=== PATIENT | female | born 1990 | race Two or more races ===

== ENCOUNTER 2025-03-05 16:55 | Observation (INO) | payer SELFPAY ==
--- NOTE | 2025-03-05 17:01 | XR_ITS ---
Examination: Complete OB ultrasound greater than 14 weeks Date and time of exam: March 05, 2025, 1711 hours. Findings: Viable intrauterine single fetus with single amniotic sac presentation breech Cardiac motion 155 BPM Placenta anterior fundal grade 3. Umbilical cord insertion 3 vessel seen. spine maternal right Cervix 4.0 cm Ovaries obscured by bowel gas. Composite estimated gestational age based on BPD, head circumference, abdominal circumference, femur length is 35 weeks 5 days, estimated weight 2918 g. Survey of intracranial anatomy, spinal anatomy, abdominal anatomy, four-chamber heart performed with no abnormalities identified. Impression: Viable intrauterine gestation breech presentation.
--- NOTE | 2025-03-05 17:01 | XR_ITS ---
Examination: Biophysical profile, ultrasound Date and time of exam: March 05, 2025 1743 hours INDICATIONS: Diagnosis uncontrolled diabetes Technique: Multiple transabdominal sonographic images of the pelvis abdomen obtained. Attention is directed to the breathing movement, gross body movement, amniotic fluid volume and tone. Findings: Amniotic fluid index 13.4 cm Total biophysical profile is 8 of 8. breathing movement is 2. Gross body movement is 2. tone is 2. Qualitative amniotic fluid volume is 2 Impression: Biophysical profile is 8 of 8.
[2025-03-05 17:41] VITALS: BMI 36.6
[2025-03-05 18:05] VITALS: BP 136/87; PULSE 78; RESP 18; RESP 99; TEMP 36.8
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
[2025-03-05 20:27] VITALS: BMI 36.6
[2025-03-05] MEDS: INSULIN NPH 1 UNIT/0.01 ML (PER UNIT) 8 UNIT SC (21:29)
[2025-03-05 21:36] VITALS: BP 131/87; PULSE 99
[2025-03-05 22:36] VITALS: BP 119/79; PULSE 81
[2025-03-05 23:36] VITALS: BP 125/92; PULSE 81
[2025-03-06] VITALS (15 sets, daily range): BP systolic 108–139; BP diastolic 61–86; PULSE 70–97; RESP 16; TEMP 36.9
[2025-03-06] MEDS: ACETAMINOPHEN 325 MG TABLET 650 MG PO (07:39)
--- NOTE | 2025-03-06 11:50 | PD.LDDS ---
DS: Providers Provider Date of admission: 03/05/25 16:55 Primary care physician: Physician No Primary/Family Admitting Provider: Anais Paniagua MD Attending Provider on Admission: Anais Paniagua MD Attending Provider on DC: Anais Paniagua MD Discharging Provider: Anais Paniagua MD DS: Diagnosis Discharge Diagnosis (1) Gestational diabetes mellitus (GDM): Status: Acute (2) History of delivery, antepartum: Status: Acute (3) Obesity affecting in third trimester: Status: Acute (4) Elderly multigravida in third trimester: Status: Acute (5) History of premature rupture of membranes (PPROM): Status: Acute Problem List Completed Was Problem List Reviewed/Reconciled?: Yes Summary/Hosp Course Brief History: Patient presents by instruction from Dr. Renee at [facility] 08/05 elevated blood sugars on log. By his report to me over the phone, patient's GDM is very uncontrolled with postprandial sugars in the 240's. Patient's glucose log shows: 02/26: 71/146/119/245 02/27: 72/245/148/151 02/28: 92/118/265/134 03/01: 69/191/138/169 03/04: 71/167/119/101 03/05/25: 67/203 Patient notes on several occasions having juice when the sugars were 200's. Doesn't have much knowledge regarding diabetic diet and how she should be eating She notes only starting her glucose log 1 week ago. She was seen by a clinic in [place] and then transferred care to Dr. Renee 1 week ago. On admission blood glucose is 88 (hasn't eaten since the morning, so essentially a fasting value). -- After initiating carb consistent diet, Kaur had normal postprandial glucose values. Given that she hadn't even adjusted her diet yet to GDM diet and had elevated values, this does not represent lack of glucose control but rather lack of patient education. I spent an extensive amount of time with her (Rachelle as small arms artillery repairer) discussing dietary changes that are needed to keep her baby safe. We discussed risks of uncontrolled glucose management to include NICU stay for O2 and IV glucose, stillbirth, etc. She was very understanding and voiced a desire to have good glucose control. We discussed focusing diet on protein, fiber and healthy fats. Discussed to eat meats, eggs, beans, veggies, some dairy. She was drinking jagjit juice and eating a lot of corn tortillas. We discussed near elimination of corn, flour, sweets and juice. Also encouraged her to take a walk after meals, but especially dinner if it is her biggest meal. She knew exactly what she ate that was elevating her sugars on her log and will work to gain better glucose control. Discussed goal fasting <95 and goal 1hr PP <140. The other issue at hand is dating and delivery timing. I reviewed all available records from [facility] and Dr. Renee and she has VERY good dating with a 7 week ultrasound that makes her 37w4d today. Growth scan done on admission showed 35w5d. She does not have macrosomia. We will schedule her for RLTCS on 03/19 (tried for 03/18 but there are already 2 scheduled cesareans that day), she will be 39w3d at that time. She is to be NPO and arrive on the unit at 0530 on the . She will continue to see Dr. Renee as scheduled in the office. I instructed her to continue qid fingersticks and to bring her log to her visits. Status at Discharge Functional status at discharge: independent ambulation Overall status at discharge: patient is back to baseline Time Spent with Patient Time attestation: Total time spent providing and/or coordinating discharge services: Time spent: Greater than 30 minutes Exam Vital Signs Temp Pulse Resp BP 98.5 F 81 16 115/79 03/06/25 07:10 03/06/25 10:13 03/06/25 07:10 03/06/25 10:13 Narrative Exam General: well developed, well nourished, no acute distress, conversant Cardiac: normal heart rate Lungs: breathing without distress Abdomen: soft, gravid, non-tender, no rebound or guarding Extremities: no edema of BLE Discharge Plan Plan Patient Disposition: HOME (Self Care) Patient condition on transfer: Stable Prescriptions/Referrals Referrals: No Primary/Family,Physician [Primary Care Provider] - Patient/Caregiver Discharge Instructions Discharge Activity: activity as tolerated Other Discharge Diet Instructions: diabetic diet Education Materials: Kick Counts, Antepartum Discharge Print Language: Icelandic Activity Restrictions/Additional Instructions: RETURN BACK TO TRIAGE WITH SIGNS OF LEAKING, VAGINAL BLEEDING, CONTRACTIONS AND OR DECREASED MOVEMENT. KEEP ALL APPOINTMENTS WITH PROVIDER. Stand Alone Forms: Jennifer Award Info., Patient Portal Info Letter, Work/Release Restrictions Discharge Order Discharge Orders: Discharge (Routine); Ordered 03/06/25 Ordered By: Anais Paniagua Planned Discharge Date 03/06/25 (1) Gestational diabetes mellitus (GDM) Qualifiers: Gestational diabetes mellitus control: unspecified Trimester: third trimester Qualified Code(s): O24.419 - Gestational diabetes mellitus in , unspecified control (3) Obesity affecting in third trimester Qualifiers: Obesity type affecting : unspecified obesity Qualified Code(s): O99.213 - Obesity complicating , third trimester
== END 2025-03-06 11:02 | disposition home or self-care (01) ==
PROVIDERS: Admitting Provider Obstetrics & Gynecology; Visit Provider Obstetrics & Gynecology
DX: O24.419 Gestational diabetes mellitus in pregnancy, unspecified control (principal); Z3A.35 35 weeks gestation of pregnancy; O32.1XX0 Maternal care for breech presentation, not applicable or unspecified; O35.8XX0 Maternal care for other (suspected) fetal abnormality and damage, not applicable or unspecified; O99.891 Other specified diseases and conditions complicating pregnancy; N13.30 Unspecified hydronephrosis; O09.523 Supervision of elderly multigravida, third trimester; O99.213 Obesity complicating pregnancy, third trimester; E66.9 Obesity, unspecified; O34.211 Maternal care for low transverse scar from previous cesarean delivery; O09.293 Supervision of pregnancy with other poor reproductive or obstetric history, third trimester
CPT/HCPCS: 59025; 59899; 76805; 76819; J1815; A9270

== ENCOUNTER 2025-03-16 03:50 | Inpatient (IN) | payer MEDICAID, SELFPAY ==
[2025-03-16] VITALS (36 sets, daily range): BP systolic 113–158; BP diastolic 72–100; PULSE 65–86; RESP 16–100; TEMP 36.7–37.1; O2SAT 79–100; BMI 36.5
[2025-03-16] MEDS: RINGERS LACTATED 1000 ML 1,000 ML 999 ML IV ×2 (04:35→16:35)
[2025-03-16 04:59] LABS: Collection Type, Urine Clean Catch
[2025-03-16 05:03] LABS: Basophils # (Auto) 0.0 Thou/mm3 (0.0-0.2); Basophils % (Auto) 0 % (0-2.5); Eosinophils # (Auto) 0.0 Thou/mm3 (0.0-0.5); Eosinophils % (Auto) 0 % (0-10); Hematocrit 41.5 % (36.0-46.0); Hemoglobin 14.0 g/dL (12.0-16.0); Immature Granulocytes Auto 0.04 Thou/mm3 (0.00-0.00); Lymphocytes # (Auto) 2.0 Thou/mm3 (1.0-4.8); Lymphocytes % (Auto) 20 % (10-50); Mean Corpuscular HGB Conc 33.7 g/dl (31.0-37.0); Mean Corpuscular Hemoglobin 29.1 pg (25.0-35.0); Mean Corpuscular Volume 86 fL (80-100); Monocytes # (Auto) 0.6 Thou/mm3 (0.0-0.8); Monocytes % (Auto) 6 % (0-12); Neutrophils # (Auto) 7.3 Thou/mm3 (1.8-7.7); Neutrophils % (Auto) 73 % (37-80); Nucleated Red Blood Cell # 0.00 Thou/mm3 (0.00-0.00); Nucleated Red Blood Cell % 0 /100 WBC (0); Platelet Count 182 Thou/mm3 (140-440); RDW Standard Deviation 44.0 fL (36.4-46.3); Red Blood Count 4.81 Miln/mm3 (4.00-5.20); White Blood Count 10.0 Thou/mm3 (3.6-11.0)
[2025-03-16 05:09] LABS: Bacteria,Urine Rare; Bilirubin,Urine Negative (Negative); Blood,Urine 1+ (Negative); Clarity,Urine Clear (Clear/Hazy); Color,Urine Lt-Yellow (Lt Yel-Yel); Glucose, Urine Negative (Negative); Ketones,Urine 1+ (Negative); Leukocyte Esterase,Urine Positive (Negative); Nitrite,Urine Negative (Negative); PH,Urine 7.0 (5.0-7.0); Protein,Urine 1+ (Neg - Trace); RBC,Urine 4 /hpf (0-3); Specific Gravity,Urine 1.012 (1.001-1.035); Squamous Epithelial Cell,Urine 6 /hpf (0-5); Urobilinogen,Urine Negative mg/dL (0.0-1.0); WBC,Urine 7 /hpf (0-5)
[2025-03-16 05:16] LABS: Creatinine,Random Urine 47 mg/dL (30-125); Protein Total, Random Urine 61 mg/dL (1-14)
[2025-03-16] MEDS: FAMOTIDINE INJ 10 MG/ML VIAL 2 ML 20 MG IV (05:24)
[2025-03-16] MEDS: ONDANSETRON INJ 2 MG/ML INJ 2 ML 4 MG IVP (05:24)
[2025-03-16] MEDS: ceFAZolin/D5W 2 GM IV 2 GM/100 ML BAG IV (05:24)
[2025-03-16 05:26] LABS: Fibrinogen 726 mg/dL (175-375); INR 1.0 (0.9-1.3); Partial Thromboplastin Time 29.2 Seconds (22.0-36.0); Prothrombin Time 10.5 Seconds (9.0-12.2)
[2025-03-16 05:39] LABS: Anion Gap 13 (7-16); Blood Urea Nitrogen 8 mg/dL (9-23); Carbon Dioxide 19.1 mMol/L (20.0-31.0); Chloride 106 mMol/L (98-107); Potassium 3.9 mMol/L (3.4-5.1); Sodium 138 mMol/L (136-145)
[2025-03-16 05:40] LABS: Alanine Aminotransferase 9 U/L (10-49); Albumin, Serum 3.6 gm/dL (3.5-5.0); Albumin/Globulin Ratio 1.2 (1.2-2.2); Alkaline Phosphatase 224 U/L (46-116); Aspartate Amino Transferase 17 U/L (0-34); BUN/Creatinine Ratio 16 Ratio (12-20); Bilirubin,Total 0.4 mg/dL (0.3-1.2); Calcium 9.1 mg/dL (8.3-10.6); Calcium (Corrected) 9.4 mg/dL (8.5-10.1); Creatinine (Component) 0.5 mg/dL (0.6-1.3); Globulin 3.0 gm/dL (2.3-3.5); Glucose 90 mg/dL (74-106); Osmolality,Calculated 273 (275-295); Total Protein 6.6 gm/dL (5.7-8.2); Uric Acid 4.7 mg/dL (3.1-7.8); eGFR > 60 See Note
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
[2025-03-16 05:43] LABS: Syphilis Nonreactive (Nonreactive)
--- NOTE | 2025-03-16 07:09 | PD.LDDELS ---
Data (Rma) Data Hx Section: Yes : 3 Term: 1 : 0 Livin Abortions: Spontaneous & Theraputic: 1 Delivery Data (Ram) Labor Data Induction/Augmentation Agent: None ROM date: 03/16/25 ROM time: Amniotic membrane rupture type: Artificial Amniotic fluid description: Clear Delivery Data Onset of labor date: 03/16/25 Onset of labor time: 01:00 delivery date: 03/16/25 delivery time: Placenta delivery date: 03/16/25 Placenta delivery time: Delivered by: Anais Paniagua Delivery nurse: BOOM GODINEZ RN [place] nurse: SHANNON COCHRAN RN Crop Or Grain Farmer at delivery: No Support person(s) at delivery: FRIEND Other staff at delivery: SEE ORM NOTES Delivery Method Delivery method: Low Transverse Presentation: Vertex Anesthesia Type Anesthesia Type: Spinal Placenta Placenta delivery description: Manual Removal Cord blood sent to lab: Yes cord blood collection: Cord Blood Type Episiotomy Episiotomy description: None EBL Estimated blood loss (ml): 1,000 Umbilical Cord cord description: 3 Vessels Additional Procedures see operative note Complications Complications: none [place] Data (Ram) [place] Data order: 1 [place]'s gender: Male Identification band number: [id number] weight (gms): 3400 g Weight (pounds): 7 lbs and 7.9 ozs [place] length: 52 cm 1 minute: 8 5 minutes: 9
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
[2025-03-16] MEDS: OXYTOCIN in NS 20 units 20 UNIT/1,000 ML BAG 125 UNIT IV ×2 (09:21→18:28)
[2025-03-16] MEDS: HYDROcodone/APAP 5/325 TABLET 2 TAB PO (09:29)
[2025-03-16] MEDS: DOCUSATE SOD 100 MG CAPSULE PO ×2 (09:30→20:20)
[2025-03-16] MEDS: KETOROLAC INJ 30 MG/ML VIAL IVP ×2 (12:59→18:29)
[2025-03-16 18:29] LABS: Basophils # (Auto) 0.0 Thou/mm3 (0.0-0.2); Basophils % (Auto) 0 % (0-2.5); Eosinophils # (Auto) 0.0 Thou/mm3 (0.0-0.5); Eosinophils % (Auto) 0 % (0-10); Hematocrit 31.2 % (36.0-46.0); Hemoglobin 10.7 g/dL (12.0-16.0); Immature Granulocytes Auto 0.04 Thou/mm3 (0.00-0.00); Lymphocytes # (Auto) 2.0 Thou/mm3 (1.0-4.8); Lymphocytes % (Auto) 18 % (10-50); Mean Corpuscular HGB Conc 34.3 g/dl (31.0-37.0); Mean Corpuscular Hemoglobin 29.5 pg (25.0-35.0); Mean Corpuscular Volume 86 fL (80-100); Monocytes # (Auto) 0.7 Thou/mm3 (0.0-0.8); Monocytes % (Auto) 6 % (0-12); Neutrophils # (Auto) 8.6 Thou/mm3 (1.8-7.7); Neutrophils % (Auto) 76 % (37-80); Nucleated Red Blood Cell # 0.00 Thou/mm3 (0.00-0.00); Nucleated Red Blood Cell % 0 /100 WBC (0); Platelet Count 138 Thou/mm3 (140-440); RDW Standard Deviation 43.4 fL (36.4-46.3); Red Blood Count 3.63 Miln/mm3 (4.00-5.20); White Blood Count 11.4 Thou/mm3 (3.6-11.0)
[2025-03-16] MEDS: SIMETHICONE 80 MG CHEW PO (20:20)
[2025-03-17] MEDS: KETOROLAC INJ 30 MG/ML VIAL IVP ×2 (00:20→06:41)
[2025-03-17 00:27] VITALS: BP 127/80; PULSE 74; RESP 18; TEMP 36.6; O2SAT 96
[2025-03-17 04:05] VITALS: BP 110/74; PULSE 70; RESP 15; TEMP 36.8; O2SAT 96
[2025-03-17 07:30] VITALS: BP 127/83; PULSE 72; RESP 20; TEMP 36.8; O2SAT 98
[2025-03-17] MEDS: DOCUSATE SOD 100 MG CAPSULE PO (08:27)
--- NOTE | 2025-03-17 10:38 | ESDS_ITS ---
DS: Providers Provider Date of admission: 03/16/25 04:33 Primary care physician: Physician No Primary/Family Admitting Provider: Anais Paniagua MD Attending Provider on Admission: Anais Paniagua MD Consults: 03/16/25 07:06 Referral Routine Comment: Attending Provider on DC: Anais Paniagua MD Discharging Provider: Anais Paniagua MD DS: Diagnosis Discharge Diagnosis (1) delivery delivered: Status: Acute (2) Active labor at term: Status: Acute (3) History of delivery, antepartum: Status: Acute (4) Gestational diabetes mellitus (GDM): Status: Acute (5) Obesity affecting in third trimester: Status: Acute (6) Elderly multigravida in third trimester: Status: Acute Problem List Completed Was Problem List Reviewed/Reconciled?: Yes Summary/Hosp Course Brief History: Kaur is a 34yo [id number] s/p uncomplicated section at 39wk after presenting in active labor, delivering at 0628 on 03/16/25. She has had an uncomplicated post-operative course, meeting all milestones and feels ready for discharge home. She is ambulating without lightheadedness, tolerating regular diet no n/v, spontaneously voiding without issue. She has no chest pain or shortness of breath. No fevers or chills. Pain well controlled. Vitals normal, benign exam. Hemodynamically stable with no evidence of infection. Post-op Hgb 10.7. Peripartum Data Delivery Method: Low Transverse Episiotomy Description: None Procedures: Procedures Operation Date: 03/16/25 06:45 Actual Procedure Side Surgeon p in OB Anais Paniagua MD Status at Discharge Functional status at discharge: independent ambulation Overall status at discharge: patient is back to baseline Time Spent with Patient Time attestation: Total time spent providing and/or coordinating discharge services: Exam Vital Signs Temp Pulse Resp BP Pulse Ox O2 Del Method 98.3 F 72 20 127/83 98 Room Air 03/17/25 07:30 03/17/25 07:30 03/17/25 07:30 03/17/25 07:30 03/17/25 07:30 03/17/25 07:30 Narrative Exam General: well developed, well nourished, no acute distress, conversant Cardiac: normal heart rate Lungs: breathing without distress Abdomen: soft, post-gravid, non-tender, no rebound or guarding, pfannenstiel incision covered by dry/clean/intact prineo bandage. Incision well reapproximated. No erythema, drainage or induration. Fundus firm at u-2cm. Extremities: no pain with palpation of calves, trace edema of BLE Discharge Plan Plan Patient Disposition: HOME (Self Care) Patient condition on transfer: Stable Prescriptions/Referrals Prescriptions/Med Rec: New docusate sodium [Colace] 100 mg capsule 100 mg PO BID Qty: 20 0RF ibuprofen 800 mg tablet 800 mg PO Q8H PRN (Reason: pain) Qty: 30 0RF hydrocodone-acetaminophen 5-325 mg tablet 1 tab PO Q6H MDD 4 tablets PRN (Reason: pain) Qty: 10 0RF Discontinued aspirin 81 mg capsule 81 mg PO QDAY No Action vit-iron fum-folic ac [ Vitamin with Minerals] 28 mg iron- 800 mcg tablet 1 tab PO QDAY Referrals: No Primary/Family,Physician [Primary Care Provider] Patient/Caregiver Discharge Instructions Discharge Activity: activity as tolerated and other Other Discharge Activity Instructions:: vaginal rest and no heavy lifting more than 10 pounds for 6 weeks. keep incision clean and dry, do not submerge. no driving while taking narcotic Other Discharge Diet Instructions: regular diet Education Materials: After a Print Language: Luxembourgish Activity Restrictions/Additional Instructions: follow up with Dr. Renee in 1 to 2 weeks for incision check, call clinic for appointment Stand Alone Forms: Jennifer Award Info., Patient Portal Info Letter Discharge Order Discharge Orders: Discharge (Routine); Ordered 03/17/25 Ordered By: Anais Paniagua Planned Discharge Date 03/17/25 (4) Gestational diabetes mellitus (GDM) Qualifiers: Gestational diabetes mellitus control: unspecified Trimester: third trimester Qualified Code(s): O24.419 - Gestational diabetes mellitus in , unspecified control (5) Obesity affecting in third trimester Qualifiers: Obesity type affecting : unspecified obesity Qualified Code(s): O99.213 - Obesity complicating , third trimester
[2025-03-17] MEDS: IBUPROFEN TAB 400 MG TABLET 800 MG PO (12:55)
[2025-03-17] MEDS: SIMETHICONE 80 MG CHEW PO (12:55)
== END 2025-03-17 13:55 | disposition home or self-care (01) | DRG 540 ==
LOC: S4SX 05:55 → S4NX 05:57
PROVIDERS: Admitting Provider Obstetrics & Gynecology; Visit Provider Obstetrics & Gynecology
PROC: 10D00Z1 Extraction of Products of Conception, Low, Open Approach (ICD-10-PCS; CPT 59514; principal; 2025-03-16 06:30)
DX: O34.211 Maternal care for low transverse scar from previous cesarean delivery (principal); O24.429 Gestational diabetes mellitus in childbirth, unspecified control; O99.214 Obesity complicating childbirth; L91.0 Hypertrophic scar; O99.72 Diseases of the skin and subcutaneous tissue complicating childbirth; O35.EXX0 Maternal care for other (suspected) fetal abnormality and damage, fetal genitourinary anomalies, not applicable or unspecified; Z3A.39 39 weeks gestation of pregnancy; Z37.0 Single live birth; Z87.59 Personal history of other complications of pregnancy, childbirth and the puerperium
CPT/HCPCS: 36415; 59409; 80053; 81001; 82570; 84156; 84550; 85025; 85384; 85610; 85730; 86780; 86850; 86900; 86901; 94762; J0689; J1885; J2210; J2274; J2371; J2405; J2590; J3010; J3490; J7120; A9270; J2270

== ENCOUNTER 2025-04-12 16:20 | Emergency (ER) | payer MEDICAID, SELFPAY ==
[2025-04-12 16:42] VITALS: BP 130/90; PULSE 67; RESP 16; TEMP 36.8; O2SAT 99; BMI 30.7
--- NOTE | 2025-04-12 16:50 | PD.EDADULT ---
ED General RME/HPI General Chief complaint: General Adult/Misc Complain Stated complaint: C.SECTION INCISION OPENED Time Seen by Provider: 04/12/25 16:42 Source: patient Arrival date/time: 04/12/25 16:20 34-year-old female with no known medical history presents to the emergency room with a chief complaint of her incision bleeding. Patient recently had a on 03/16/2025 Mode of arrival: ambulatory Limitations: no limitations Related Data Home Medications ?Medication ?Instructions ?Recorded ?Confirmed vitamin-ferrous fumarate 1 tab PO QDAY 03/16/25 03/16/25 28 mg iron-folic acid 800 mcg tablet ( Vitamins with Minerals) Previous Rx's ?Medication ?Instructions ?Recorded docusate sodium 100 mg capsule 100 mg PO BID #20 caps 03/17/25 (Colace) hydrocodone 5 mg-acetaminophen 325 1 tab PO Q6H PRN pain #10 tabs 03/17/25 mg tablet ibuprofen 800 mg tablet 800 mg PO Q8H PRN pain #30 tabs 03/17/25 Allergies Allergy/AdvReac Type Severity Reaction Status Date / Time No Known Allergies Allergy Verified 04/12/25 16:25 Review of Systems Review of Systems Systems Reviewed: All systems reviewed, normal except as documented Constitutional Constitutional: Reports system reviewed and no additional complaints, except as documented, Denies fatigue, Denies fever(s), Denies headache(s) and Denies weakness Eyes Eyes: Reports system reviewed and no additional complaints, except as documented, Denies blurry vision and Denies change in vision ENT Ears, Nose, Mouth, and Throat: Reports system reviewed and no additional complaints, except as documented, Denies otalgia, Denies headache(s), Denies nasal congestion, Denies throat swelling and Denies vertigo Cardiovascular Cardiovascular: Reports system reviewed and no additional complaints, except as documented, Denies chest pain, Denies dyspnea and Denies dyspnea on exertion Respiratory Respiratory: Reports system reviewed and no additional complaints, except as documented, Denies chest congestion, Denies cough, Denies dyspnea, Denies dyspnea on exertion and Denies wheezing Gastrointestinal Gastrointestinal: Reports system reviewed and no additional complaints, except as documented, Denies abdominal pain, Denies cramping, Denies nausea and Denies vomiting Genitourinary Genitourinary: Reports system reviewed and no additional complaints, except as documented Musculoskeletal Musculoskeletal: Reports system reviewed and no additional complaints, except as documented and Denies back pain Integumentary/Breasts Skin/Breast: Reports system reviewed and no additional complaints, except as documented and Reports wounds Neurologic Neurologic: Reports system reviewed and no additional complaints, except as documented, Denies confusion, Denies headache(s), Denies lack of coordination, Denies vertigo and Denies weakness Psychiatric Psychiatric: Reports system reviewed and no additional complaints, except as documented, Denies anxiety, Denies confusion, Denies depression, Denies paranoia, Denies suicidal ideation and Denies tactile hallucinations Endocrine Endocrine: Reports system reviewed and no additional complaints, except as documented and Denies fatigue Hematologic/Lymphatic Hematologic/Lymphatic: Reports system reviewed and no additional complaints, except as documented and Denies lymphadenopathy Allergic/Immunologic Allergic/Immunologic: Reports system reviewed and no additional complaints, except as documented, Denies throat swelling, Denies urticaria and Denies wheezing Past Medical History Past Medical History NEUROLOGIC: Negative Neurological Disorders or Seizures CARDIAC: Negative Cardiac Disorders or Congestive Heart Failure RESPIRATORY: Negative Chronic Obstructive Pulmonary Disease (COPD) GASTROINTESTINAL: Negative Gastrointestinal Disorders or Hepatitis GENITOURINARY: Negative Genitourinary Disorders or Renal Disease REPRODUCTIVE: Negative Endometriosis, Genital Herpes, Gonorrhea, Pelvic Inflammatory Disease, Previous Pregnancies, Syphilis or Uterine Prolapse MUSCULOSKELETAL: Negative Musculoskeletal Disorders or Carpal Tunnel Syndrome ENDOCRINE: Positive Endocrine Disorders; Negative Diabetes Mellitus Type 1, Diabetes Mellitus Type 2, Hypoglycemia, Hyperthyroidism, Hypothyroidism, Parathyroid Disease, Pituitary Disease, Systemic Lupus Erythematosus, Syndrome of Inappropriate Antidiuretic Hormone (SIADH) or Graves' Disease HEMATOLOGIC: Negative Blood Disorders OTHER HISTORY: Negative Hospitalization, Autoimmune Disease, Down Syndrome, Developmental Delay, Shingles, Falls, Blood Transfusions, Blood Transfusion Reaction, Anesthesia Reactions, Organ Transplant, Chemotherapy, Radiation Therapy, Hyperbaric Therapy, MRSA, VRSA, Vancomycin-Resistant Enterococci, Human Immunodeficiency Virus (HIV), Chicken Pox, Measles, Mumps, Rubella (Persian Measles), Pertussis, Clostridium Difficile or Cancer Family History FAMILY HISTORY: Negative Family Psychiatric Problems, Family Respiratory Disorders, Family Cardiac Disorders, Family Gastrointestinal Problems, Family Cancer, Family Surgery or Family Anesthesia Reaction Surgical History SURGICAL: Positive Abdominal Surgery and Section; Negative Cardiac Surgery, Endocrine Surgery, Thyroidectomy, Ear Surgery, Gastric Bypass Surgery, Gastrostomy, Bowel Surgery, Nephrectomy, Joint Replacement, Amputation, Open Reduction Internal Fixation, Arthroscopy, Neurologic Surgery, Brain Shunt, Lumpectomy, Hysterectomy, Tubal Ligation or Organ Transplant Social History SMOKING STATUS: Never smoker SECOND HAND EXPOSURE: No ED Exam General Limitations: Present no limitations General appearance: Present alert and in no apparent distress Head Head exam: Present atraumatic Eye Eye exam: Present normal appearance, PERRL and EOMI ENT ENT exam: Present normal exam, normal oropharynx and mucous membranes moist Neck Neck exam: Present normal inspection, full ROM and trachea midline Chest Chest inspection: Present normal inspection and symmetric chest wall rise Respiratory Respiratory exam: Present normal lung sounds bilaterally Cardiovascular Cardiovascular exam: Present regular rate, normal rhythm and normal heart sounds Abdominal Exam Abdominal exam: Present soft and normal bowel sounds Extremities Exam Extremities exam: Present normal inspection and full ROM Back Exam Back exam: Present normal inspection and full ROM Neurological Exam Neurological exam: Present alert, oriented X3 and CN II-XII intact Psychiatric Psychiatric exam: Present normal affect and normal mood Skin Skin exam: Present warm, dry, intact and normal color Course Quality Measures none Vital Signs Vital signs: Vital Signs Temperature 98.2 F 04/12/25 16:42 Pulse Rate 67 04/12/25 16:42 Respiratory Rate 16 04/12/25 16:42 Blood Pressure 130/90 H 04/12/25 16:42 Pulse Oximetry (%) 99 04/12/25 16:42 Oxygen Delivery Method Room Air 04/12/25 16:42 Discharge Plan Plan Patient Disposition: HOME (Self Care) Discharge Disposition comment: Stable Prescriptions/Referrals Prescriptions/Med Rec: No Action vit-iron fum-folic ac [ Vitamin with Minerals] 28 mg iron- 800 mcg tablet 1 tab PO QDAY docusate sodium [Colace] 100 mg capsule 100 mg PO BID Qty: 20 0RF ibuprofen 800 mg tablet 800 mg PO Q8H PRN (Reason: pain) Qty: 30 0RF hydrocodone-acetaminophen 5-325 mg tablet 1 tab PO Q6H MDD 4 tablets PRN (Reason: pain) Qty: 10 0RF Problem List Clinical Impression: Complication of section wound Patient/Caregiver Discharge Instructions Additional Instructions: Por favor, consulte con welch ginec?logo/obstetra en las pr?ximas 24 a 48 horas. He evaluado welch herida y hay olivia ann?a scooter que sangra. No hay dehiscencia de la herida. Si observa cualquier signo de empeoramiento de los signos o s?ntomas, acuda a urgencias de inmediato. Print Language: Tuvaluan Stand Alone Forms: Jennifer Award Info., Work/School Release, Patient Portal Info Letter MDM Narrative MDM hospital course (for use when minimal MDM required): 34-year-old female with no known medical history presents to the emergency room with a chief complaint of her incision bleeding. Patient recently had a on 03/16/2025 Patient is hemodynamically stable and in no apparent distress Physical examination shows a very small area near the right side of the incision that is bleeding. There is no surgical scar adhesion. Patient was discharged and educated to follow-up with primary care provider in the next 24 to 48 hours and return to the emergency room for any evidence of worsening signs or symptoms Clinical Information Provided by: none Medical Records reviewed None Meds/Rx considered, not ordered None Labs/Rad/Tests considered, not ordered None Chronic Illness/Social Conditions which may negatively complicate care or outcome(s)-explain: None or not applicable EKG EKG not done Labs Labs: none Imaging Imaging interpretation: none Medication Administration(s) none Diagnosis Differential Diagnosis ED Complaint MDM: Complication of section wound/surgical scar dehiscence Diagnoses ruled out and/or further discussions: Surgical scar dehiscence
== END 2025-04-12 16:59 | disposition home or self-care (01) ==
LOC: SERX 16:52
PROVIDERS: Emergency Provider Family Medicine
DX: O90.0 Disruption of cesarean delivery wound (principal)
CPT/HCPCS: 99281